=== PATIENT | male | born 1980 ===

== ENCOUNTER 2018-09-19 10:15 | Outpatient (CLI) | payer OTHER ==
[~2018-09-19] VITALS: Ht 152.4 cm; Wt 72.6 kg
== END 2018-09-19 10:30 | disposition home or self-care (01) ==
LOC: OFIC 805 10:15
DX: H81.12 Benign paroxysmal vertigo, left ear (principal)

== ENCOUNTER 2025-01-21 09:21 | Day surgery (SDC) | payer OTHER ==
[2025-01-15 11:11] LABS: URINE APPEARANCE Clear; URINE BILIRRUBIN Negative (NEGATIVE); URINE BLOOD Negative; URINE COLOR Yellow; URINE GLUCOSE Negative (NEGATIVE); URINE KETONE Trace (NEGATIVE); URINE LEUKOCYTE Negative; URINE NITRATE Negative; URINE PROTEIN Negative (NEGATIVE); URINE UROBILINOGEN 0.2 E.U./dl
[2025-01-15 11:14] LABS: URINE RBC 2.9 uL (0.0-20.8)
[2025-01-15 11:16] LABS: URINE BACTERIA 3.6 uL (0.0-1933); URINE EPITHELIAL CELLS 0.4 uL (0.0-38.8); URINE WBC 0.4 uL (0.0-23.2)
[2025-01-15 11:22] LABS: HEMATOCRIT 47.1 % (39.0-48.0); HEMOGLOBIN 16.2 g/dL (13-16.00); MEAN CELL VOLUME 87.4 fL (80.0-100.00); MEAN CORPUSCULAR HEMOGLOBIN 30.1 pg (27.00-32.0); MEAN CORPUSCULAR HGB CONC 34.5 g/dl (32.0-36.0); PLATELET COUNT 188 K/uL (150-450); RED BLOOD COUNT 5.39 M/uL (4.00-6.00); RED CELL DISTRIBUTION WIDTH 13.5 % (11.5-14.5)
[2025-01-15 12:28] LABS: INR 1.04; PROTHROMBIN TIME 11.3 SECONDS (9.0-11.5)
[2025-01-15 12:33] LABS: ALBUMIN 4.7 gm/dL (3.4-5.0); BILIRUBIN TOTAL 0.76 mg/dL (0.3-1.2); CALCIUM 9.9 mg/dL (8.5-10.1); CREATININE SERUM 0.9 mg/dL (0.70-1.30); GFR 91.67; GLOBULINA 3.6 G/DL (2.4-3.5); POTASSIUM 4.21 mEq/L (3.5-5.1); TOTAL PROTEIN 8.3 gm/dL (6.4-8.2)
[2025-01-21] MEDS ORDERED: TRAMADOL HCL50 MG PO (10:52)
[2025-01-21] MEDS ORDERED: KETO10TA2 PO (10:52)
[2025-01-21] MEDS ORDERED: MIRALAX17 GM PO (10:52)
[2025-01-21] MEDS ORDERED: TYLENOL ARTHRI650 MG PO (10:52)
[2025-01-21] MEDS ORDERED: CEFAZOLIN SODIUM 1,000 MG VIAL ONE (10:59)
[2025-01-21] MEDS ORDERED: BUPIVACAINE HCL/MPF 0.5% 30ML VIAL ONE (13:40)
[2025-01-21] MEDS ORDERED: KETOROLAC TROMETHAMINE 30 MG VIAL ONE (14:28)
== END 2025-01-21 19:50 | disposition home or self-care (01) ==
LOC: CIR.AMB 09:21
PROVIDERS: ATTEND Surgery
DX: K40.90 Unilateral inguinal hernia, without obstruction or gangrene, not specified as recurrent (principal); K42.0 Umbilical hernia with obstruction, without gangrene
CPT/HCPCS: 49650; 49592; C1781